=== PATIENT | female | born 1985 | race Caucasian/White ===

== ENCOUNTER 2020-09-20 13:17 | Outpatient (REF) | payer BC, SELFPAY ==
--- NOTE | ~2020-09-20 | US_ITS ---
EXAMINATION: US COMPLETE ABDOMEN WITH LIVER ELASTOGRAPHY CLINICAL INFORMATION: Calculus of gallbladder without cholecystitis. COMPARISON: Ultrasound 04/23/2018 TECHNIQUE: Real-time imaging of the abdominal viscera. Noninvasive ultrasound liver fibrosis assessment is performed using Lana ElastPQ point quantification shear wave elastography (pSWE) with a C5-2 MHz transducer. Multiple elastography samples are obtained. FINDINGS: PANCREAS: Normal. The visualized pancreatic head and body are normal in appearance. The remainder of the pancreas is obscured from visualization by the overlying bowel gas. ABDOMINAL AORTA: The proximal, middle, and distal aortic segments are normal in caliber. INFERIOR VENA CAVA: Visualized portions are normal. LIVER: Mild increased echogenicity. No focal lesion or intrahepatic biliary duct dilatation. The right lobe measures 15.4 cm in length. The left lobe measures 6.9 cm in length. Portal flow is hepatopedal. Shear wave liver elastography median stiffness is 1.27 m/s (reference: normal median stiffness is 1.3 m/s or less). IQR/median stiffness to assess sampling precision is 0.18 (reference: good quality data set is IQR/median stiffness of 0.15 or less). Multiple gallstones. No wall thickening or pericholecystic fluid. No tenderness in the area of the gallbladder. COMMON BILE DUCT: Normal in caliber measuring 0.3 cm in diameter. RIGHT KIDNEY: Normal. No hydronephrosis. No renal calculi or focal parenchymal lesions. The kidney measures 10.2 cm in maximum dimension. LEFT KIDNEY: Normal. No hydronephrosis. No renal calculi or focal parenchymal lesions. The kidney measures 9.4 cm in maximum dimension. SPLEEN: Normal. The spleen measures 8.9 cm in maximum dimension. FREE FLUID: None. US/US abdomen comp w elastography IMPRESSION: 1. Cholelithiasis without sonographic findings to suggest acute cholecystitis. 2. There is generalized increase in hepatic echotexture, consistent with fatty infiltration or hepatocellular disease. Please correlate clinically. No focal hepatic mass or intrahepatic biliary duct dilatation is seen. 3. Liver elastography: Liver stiffness 1.27 m/s. According to guidelines, this falls within range of high probability normal. REFERENCE: Society of Radiologists in Ultrasound Liver Stiffness Thresholds (2020): LIVER STIFFNESS THRESHOLDS: *Liver Stiffness equal or less than 1.3 m/s: High probability of being normal. *Liver Stiffness less than 1.7 m/s: In the absence of other known clinical signs, rules out compensated advanced chronic liver disease. *Liver Stiffness 1.7-2.1 m/s: Suggestive of compensated advanced chronic liver disease but need further test for confirmation. *Liver Stiffness over 2.1 m/s: Rules in compensated advanced chronic liver disease. *Liver Stiffness over 2.4 m/s: Suggestive of clinically significant portal hypertension. QUALITY OF DATA SET: *IQR/Median value equal or less than 0.15 implies a quality data set. *IQR/Median value over 0.15 implies a poor quality data set. SIGNIFICANT CHANGE FROM PRIOR EXAM: Significant change if liver stiffness measurement is 10% or greater from prior exam. OTHER CONSIDERATIONS: The stage of liver fibrosis may be overestimated in the setting of acute hepatitis, liver inflammation, elevated liver function tests, hepatic vascular congestion, obstructive cholestasis, non-fasting state, and infiltrative diseases such as amyloidosis and lymphoma. In some patients with NAFLD, the liver stiffness thresholds for compensated advanced chronic liver disease may be lower. In causes other than viral hepatitis and NAFLD, liver stiffness thresholds are not well established.
== END 2020-09-20 13:18 | disposition home or self-care (01) ==
LOC: HO.US 13:17
PROVIDERS: Visit Provider Internal Medicine
DX: K80.20 Calculus of gallbladder without cholecystitis without obstruction (principal)
CPT/HCPCS: 76705; 76981

== ENCOUNTER 2021-09-26 20:25 | Emergency (ER) | payer BC, SELFPAY ==
--- NOTE | 2021-09-26 | ECG_ITS ---
Test Reason : PALPITATIONS Blood Pressure : / mmHG Vent. Rate : 065 BPM Atrial Rate : 065 BPM P-R Int : 136 ms QRS Dur : 092 ms QT Int : 414 ms P-R-T Axes : 068 053 050 degrees QTc Int : 430 ms Normal sinus rhythm Normal ECG No previous ECGs available Referred By: Generic ED Physician Electronically Signed By:ANGELIC HWANG
[2021-09-26 20:29] VITALS: BP 143/91; PULSE 79; RESP 18; TEMP 36.8; O2SAT 100; BMI 28.0
== END 2021-09-26 21:50 | disposition left against medical advice (07) ==
PROVIDERS: Emergency Provider Emergency Medicine
DX: R06.02 Shortness of breath (principal); R07.9 Chest pain, unspecified; F41.9 Anxiety disorder, unspecified
CPT/HCPCS: 93005; 99281; 99283

== ENCOUNTER 2022-06-18 12:01 | Outpatient (REF) | payer OTHER, SELFPAY ==
--- NOTE | ~2022-06-18 | XR_ITS ---
EXAMINATION: XR CHEST CLINICAL INFORMATION: Cough. COMPARISON: None available. TECHNIQUE: 2 views of the chest were obtained. FINDINGS: No significant abnormality is noted involving the heart, lungs, mediastinum, bony thorax or soft tissues. XR/XR chest 2V IMPRESSION: No acute cardiopulmonary process.
== END 2022-06-18 12:02 | disposition home or self-care (01) ==
LOC: HO.HMGCX 12:01
PROVIDERS: Visit Provider Internal Medicine
DX: R05.9 Cough, unspecified (principal)
CPT/HCPCS: 71046

== ENCOUNTER 2022-07-29 07:33 | Outpatient (REF) | payer OTHER, SELFPAY ==
[2022-07-29 07:43] LABS: MANUAL DIFF FLAG NO
[2022-07-29 08:09] LABS: Basophils Absolute Auto 0.1 X10*3/uL (0.0-0.2); Basophils Percent Auto 1.2 % (0-2); Eosinophils Absolute Auto 0.1 X10*3/uL (0.0-0.4); Eosinophils Percent Auto 1.5 % (0-4); Hematocrit 39.6 % (37.0-47.0); Hemoglobin 13.1 g/dl (12.0-16.0); Imm Gran Abs Auto 0.03 X10*3/uL (0.00-0.03); Imm Gran Pct Auto 0.5 % (0.0-0.4); Lymphocytes Absolute Auto 2.4 X10*3/uL (1.2-4.9); Lymphocytes Percent Auto 38.7 % (20-40); Mean Corpuscular HGB Conc 33.1 g/dl (31.0-35.0); Mean Corpuscular Hemoglobin 28.7 pg (27.0-33.0); Mean Corpuscular Volume 86.8 fL (80.0-98.0); Mean Platelet Volume 9.6 fL (9.4-12.3); Monocytes Absolute Auto 0.5 X10*3/uL (0.1-1.2); Monocytes Percent Auto 8.4 % (2-11); Neutrophils Percent Auto 49.7 % (45-73); Platelet Count 320 X10*3/uL (160-400); Red Blood Count 4.56 X10*6/uL (4.20-5.50); Red Cell Distribution Width 13.1 % (11.0-16.0); White Blood Count 6.1 X10*3/uL (4.8-10.8)
[2022-07-29 09:12] LABS: Alanine Aminotransferase 10 U/L (0-31); Albumin Level 4.1 g/dL (3.5-5.0); Alkaline Phosphatase 53 U/L (39-117); Anion Gap 10 (12-20); Aspartate Amino Transferase 14 U/L (5-31); Bilirubin Total 0.8 mg/dL (0.0-1.0); Blood Urea Nitrogen 14 mg/dL (9-16); Calcium 9.7 mg/dL (8.4-10.2); Carbon Dioxide 29 mmol/L (22-29); Chloride 106 mmol/L (96-108); Cholesterol 204 mg/dL; Estimated Glomerular Filt Rate > 60; HDL Cholesterol 51 mg/dL; LDL Cholesterol Calculated 141 mg/dl; Sodium 141 mmol/L (135-145); Total Protein 7.1 g/dL (6.5-8.0); Triglycerides 63 mg/dL
[2022-07-29 12:11] LABS: Glucose Random 85 mg/dL (60-115)
== END 2022-07-29 07:34 | disposition home or self-care (01) ==
LOC: HO.LAB 07:33
PROVIDERS: PCP Internal Medicine; Visit Provider Internal Medicine
DX: Z00.00 Encounter for general adult medical examination without abnormal findings (principal); E78.5 Hyperlipidemia, unspecified; E55.9 Vitamin D deficiency, unspecified; F32.0 Major depressive disorder, single episode, mild
CPT/HCPCS: 36415; 80053; 80061; 82306; 85025

== ENCOUNTER 2024-07-01 08:21 | Outpatient (REF) | payer OTHER, SELFPAY ==
[2024-07-01 10:37] LABS: Albumin Level 4.3 g/dL (3.5-5.0); Alkaline Phosphatase 57 U/L (39-117); Anion Gap 11 (12-20); Aspartate Amino Transferase 29 U/L (5-31); Blood Urea Nitrogen 18 mg/dL (9-16); Calcium 9.4 mg/dL (8.4-10.2); Carbon Dioxide 24 mmol/L (22-29); Chloride 109 mmol/L (96-108); Cholesterol 241 mg/dL (<200); Estimated Glomerular Filt Rate > 60; Glucose Fasting 79 mg/dL (60-99); HDL Cholesterol 56 mg/dL (>40); LDL Cholesterol Calculated 172 mg/dL (<100); Potassium 4.5 mmol/L (3.3-5.1); Sodium 139 mmol/L (135-145); Total Protein 7.9 g/dL (6.5-8.0); Triglycerides 68 mg/dL (<150); Vitamin D 25-OH Total 42.7 ng/mL (>30)
[2024-07-01 11:18] LABS: Alanine Aminotransferase 42 U/L (0-31)
== END 2024-07-01 08:22 | disposition home or self-care (01) ==
LOC: HO.LAB 08:21
PROVIDERS: PCP Internal Medicine; Visit Provider Internal Medicine
DX: Z00.00 Encounter for general adult medical examination without abnormal findings (principal); E55.9 Vitamin D deficiency, unspecified; E78.5 Hyperlipidemia, unspecified
CPT/HCPCS: 36415; 80053; 80061; 82306

== ENCOUNTER 2024-07-08 16:41 | Outpatient (AMB) | payer OTHER, SELFPAY ==
--- NOTE | 2024-07-08 16:52 | A.OFFPC_ITS ---
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 Accompanied by: Self / Same As Patient Allergies No Known Allergies [No Known Allergies*] Allergy (Verified 07/08/24 17:07) Medication List - Last Reconciled 07/08/24 by Natalia Harvey MD bupropion HCl XL 150 mg PO QAM 90 days Tobacco use date assessed: 07/08/24 Dental Screening Dental Screen Date: 07/08/24 Did you have a dental visit in the last 12 months?: Yes Did you have a dental problem in the last 6 months where you did not have access to dental care?: No Was dental information given to patient?: Patient has dentist HPI HPI Comments History of Present Illness Details The patient is a 39-year-old female presenting for her physical exam with symptoms of premenstrual syndrome, notably mood disturbances and headaches preceding her menstrual period. She reports a significant deterioration in her mood, including depressive symptoms, which she correlates with her menstrual cycle over the past year. The headaches persist for three days before menstruation. Previous attempts to use hormonal contraceptives for symptom management resulted in an allergic reaction, including palpitations, leading to their discontinuation. The patient recalls a similar response with contraceptive use in [place]. She is concerned about perimenopause, considering early menopause in her mother, and is willing to undergo hormonal evaluation to address these symptoms. [facility] Medical History (Updated 07/08/24 @ 17:19 by Natalia Harvey MD) Mild major depression, single episode Hypovitaminosis D Depression Gallstones Dyslipidemia Back pain Surgical History (Updated 07/08/24 @ 17:14 by Natalia Harvey MD) H/O liposuction No pertinent past surgical history Family History Father Lung cancer Mother Heart disease Diabetes Brother In good health Brother In good health Brother In good health Social History Housing: Condominium Alcohol intake: never Patient Tobacco Use Status: Never used Tobacco e-Cigarette/Vaping Use: Never Used Second Hand Smoke Exposure: No service: No Current occupational status: employed Current occupational exposures/hazards: No Cognitive needs: No Hearing needs: No Vision needs: No Questionnaire PHQ-9 Over the last 2 weeks, how often have you been bothered by any of the following problems? 1. Little interest or pleasure in doing things: not at all 2. Feeling down, depressed, or hopeless: not at all 3. Trouble falling or staying asleep, or sleeping too much: not at all 4. Feeling tired or having little energy: not at all 5. Poor appetite or overeating: not at all 6. Feeling bad about yourself - or that you are a failure or have let yourself or your family down: not at all 7. Trouble concentrating on things, such as reading the newspaper or watching television: not at all 8. Moving or speaking so slowly that other people could have noticed. Or the opposite - being so fidgety or restless that you have been moving around a lot more than usual: not at all 9. Thoughts that you would be better off or of hurting yourself in some way: not at all Total score: 0 Depression Screening Interpretation: Negative Depression Screening Done: Yes 36441 - PHQ-9 Billing: Yes Source: Developed by Drs. Steve Fonseca, Ailyn Traore, Niles Vasquez and colleagues, with an educational asa from [employer]. Thrive Questionnaire Date Thrive assessed: 07/01/24 I am a: Patient What is your living situation today?: I choose not to answer this question Within the past 12 months, did the food you bought not last and you didn't have the money to get more?: I choose not to answer this question Within the past 12 months, did you worry whether your food would run out before you got money to buy more?: I choose not to answer this question Do you have trouble paying for medicines?: No Do you have trouble getting transportation to medical appointments?: No Do you have trouble paying your heating and electricity bill?: I choose not to answer this question Do you have trouble taking care of your child, family member or friend?: I choose not to answer this question Do you have trouble with day-to-day activities such as bathing, preparing meals, shopping, managing finances, etc.?: I choose not to answer this question Are you currently unemployed and looking for a job?: No Are you interested in more education?: No Please select the resources that you would like help with: None Currently or been in a relationship where the following occur: No concerns reported THRIVE Score: 0 AUDIT C Alcohol Use Questionnaire (AUDIT-C) 1. How often do you have a drink containing alcohol?: Never Total Score: 0 Score Reviewed/Action Taken: No PARAS-7 AMB Questionnaire PARAS-7 Date PARAS - 7 assessed: 07/08/24 Feeling nervous, anxious, or on edge: 0 = Not at all Not being able to stop or control worryin = Not at all Worrying too much about different things: 0 = Not at all Trouble relaxin = Not at all Being so restless that it is hard to sit still: 0 = Not at all Becoming easily annoyed or irritable: 0 = Not at all Feeling afraid as if something awful might happen: 0 = Not at all Total PARAS-7 score (0-4 normal; 5-9 mild; 10-14 moderate; 15-21 severe): 0 Source: Developed by Drs. Steve Fonseca, Ailyn Traore, Niles Vasquez and colleagues, with an educational asa from [employer]. PARAS-7 Assessment Billing PARAS-7 Assessment Tool: PARAS-7 Assessment 06787 Review of Systems Const All systems reviewed & are unremarkable except as noted in HPI and below Card Denies chest pain at rest, Denies chest pain with activity, Denies edema, Denies irregular heart rhythm, Denies claudication, Denies dyspnea, Denies dyspnea on exertion, Denies orthopnea, Denies paroxysmal nocturnal dyspnea and Denies slow heart rate Resp Denies cough, Denies dyspnea and Denies dyspnea on exertion GI Denies abdominal pain, Denies change in bowel habits, Denies excessive flatus, Denies nausea and Denies vomiting Denies urinary incontinence, Denies urinary hesitancy and Denies urinary urgency Musc Denies atrophy, Denies deformity and Denies limited range of motion Skin/Breast Denies bleeding lesions, Denies changing lesions and Denies rash Physical exam (Primary Care) Vital Signs: Last Vital Signs BP 120/72 07/08/24 16:58 BMI result Body Mass Index 28.5 Tobacco/Smoking Status: Tobacco use Status Tobacco use date assessed 07/08/24 07/08/24 17:02 Patient Tobacco Use Status Never used Tobacco 07/08/24 16:55 e-Cigarette/Vaping Use Never Used 07/08/24 16:55 PHQ-9: PHQ-9 Score PHQ-9: Total score 0 07/08/24 17:09 Depression Screening Interpretation: Negative Thrive Assessment: Date of Thrive Assessment Date Thrive assessed 07/01/24 07/08/24 16:55 Currently or been in a relationship where the following occur: No concerns reported HENMT Head: Yes normal to inspection, Yes normocephalic and Yes atraumatic Ears: external ears normal Eyes General: appearance normal, both eyes and all related structures Neck Neck: Yes normal visual inspection and Yes supple Resp Effort & Inspection: normal respiratory effort Auscultation: clear to auscultation bilaterally Cardio Jugular venous distension: no JVD Rate: regular rate Rhythm: regular rhythm Heart sounds: S1 normal heart sound present and S2 normal heart sound present GI Inspection: Yes normal to inspection Palpation (GI): Soft to palpation and nontender Auscultation: normal bowel sounds Skin General skin exam: no rashes or lesions noted Neuro General: no focal motor deficits Extrem General: Yes full ROM Psych Appearance: grossly normal Coding Level of Care Code Est Pt Level 3 (65022) Est Pt Prev Care 18-39y(80901) Diagnoses Physical exam Z00.00 Mild major depression, single episode F32.0 Abnormal menses N92.6 Additional Codes PARAS-7 Assessment Billing - PARAS-7 Assessment Tool: PARAS-7 Assessment 82699 ([id number]) PHQ-9 - 64223 - PHQ-9 Billing: Yes ([id number]) Time Spent (min) 33 Assessment & Plan Assessment & Plan (1) Physical exam: Code(s): Z00.00 - Encounter for general adult medical examination without abnormal findings Category: Medical (2) Mild major depression, single episode: Code(s): F32.0 - Major depressive disorder, single episode, mild Category: Medical (3) Abnormal menses: Code(s): N92.6 - Irregular menstruation, unspecified Category: Medical Plan Laboratory tests including cortisol, FSH, LH, estrogen, progesterone, and thyroid hormone levels are to be conducted, ideally on the third day of the menstrual cycle to evaluate hormonal status and potential perimenopausal transition. The timing aims for hormonal peaks, and fasting is not necessary. These evaluations will guide further management, with consideration for non- hormonal strategies to address premenstrual syndrome symptoms due to adverse reactions with hormonal contraceptives. Monitoring will be continued to assess symptom progression and response to management. Patient was informed and verbally consented to the use of an ambient scribe for clinic note documentation during this visit. During the consultation, I discussed with the patient the probability of her symptoms being related to premenstrual syndrome and the potential for entering perimenopause. We considered the risks and benefits of hormonal evaluations and their timing in relation to the menstrual cycle. The plan includes laboratory tests for a comprehensive hormonal profile and further discussion once results are available to tailor symptom management strategies. Follow-up was recommended to review test results and outline potential treatment modifications. The patient was receptive to conducting the evaluations as discussed. Orders: Orders Follicle Stimulating Hormone 07/08/24 N92.6 - Irregular menstruation, unspecified Thyroid Stimulating Hormone 07/08/24 N92.6 - Irregular menstruation, unspecified Saliva Cortisol 07/08/24 N92.6 - Irregular menstruation, unspecified Estrogen 07/08/24 N92.6 - Irregular menstruation, unspecified Lutenizing Hormone 07/08/24 N92.6 - Irregular menstruation, unspecified Progesterone 07/08/24 N92.6 - Irregular menstruation, unspecified Testosterone, Free/Total 07/08/24 N92.6 - Irregular menstruation, unspecified Patient Instructions: - Undergo hormonal evaluations on the third day of the menstrual cycle, around 8:00 AM. - No need to fast before the tests. - Maintain hydration. - Follow up to discuss test results and potential management strategies upon result availability.
[2024-07-08 16:58] VITALS: BP 120/72; BMI 28.5
== END 2024-07-08 17:11 | disposition home or self-care (01) ==
LOC: HO.HMCH 16:42
PROVIDERS: PCP Internal Medicine; Visit Provider Internal Medicine
DX: Z00.00 Encounter for general adult medical examination without abnormal findings (principal); F32.0 Major depressive disorder, single episode, mild; N92.6 Irregular menstruation, unspecified

== ENCOUNTER → 2024-07-08 16:41 | Outpatient (BNVA) | payer OTHER, SELFPAY | PROVIDERS: PCP Internal Medicine; Visit Provider Internal Medicine | DX: Z00.00 Encounter for general adult medical examination without abnormal findings (principal); F32.0 Major depressive disorder, single episode, mild; N92.6 Irregular menstruation, unspecified | CPT/HCPCS: 96127 ==

== ENCOUNTER 2024-07-10 08:18 | Outpatient (REF) | payer OTHER, SELFPAY ==
[2024-07-12 18:33] LABS: Follicle Stimulating Hormone 21.3 mIU/mL; Lutenizing Hormone 16.5 mIU/mL
[2024-07-16 01:13] LABS: Estrogen 169 pg/mL
[2024-07-18 15:44] LABS: Testosterone, Free 1.5 pg/mL (0.1-6.4); Testosterone, Total 15 ng/dL (2-45)
[2024-07-29 17:49] LABS: Progesterone 0.2 ng/mL
== END 2024-07-10 08:19 | disposition home or self-care (01) ==
LOC: HO.LAB 08:18
PROVIDERS: PCP Internal Medicine; Visit Provider Internal Medicine
DX: N92.6 Irregular menstruation, unspecified (principal)
CPT/HCPCS: 36415; 82672; 83001; 83002; 84144; 84402; 84403; 84443

== ENCOUNTER 2024-11-15 09:54 | Outpatient (AMB) | payer OTHER, SELFPAY ==
--- NOTE | 2024-11-15 09:55 | A.OFFPC_ITS ---
Intake Visit Reasons: Discussing Franc-Danlos Syndrome (EDS) symptoms Engineering Leader Required: No Accompanied by: Self / Same As Patient Allergies No Known Allergies (No Known Allergies*) Allergy (Verified 11/15/24 10:14) Medication List - Last Reconciled 11/15/24 by Natalia Harvey MD bupropion HCl XL 300 mg PO QAM 90 days Tobacco use date assessed: 11/15/24 Dental Screening Dental Screen Date: 11/15/24 Did you have a dental visit in the last 12 months?: Yes Did you have a dental problem in the last 6 months where you did not have access to dental care?: No Was dental information given to patient?: Patient has dentist HPI HPI Comments History of Present Illness Details The patient is a 39-year-old female presenting with major depressive disorder, vitamin D deficiency, and joint-related symptoms. She has a history of mild major depressive disorder, currently managed with bupropion 300 mg, which she finds excessive and requests a reduction to 150 mg. Vitamin D deficiency is being managed with ongoing supplementation. 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 [facility] Medical History (Updated 11/15/24 @ 10:21 by Natalia Harvey MD) Mild major depression, single episode Hypovitaminosis D Depression Gallstones Dyslipidemia Back pain Surgical History (Updated 07/08/24 @ 17:14 by Natalia Harvey MD) H/O liposuction No pertinent past surgical history Family History Father Lung cancer Mother Heart disease Diabetes Brother In good health Brother In good health Brother In good health Social History Housing: Condominium Alcohol intake: never Patient Tobacco Use Status: Never used Tobacco e-Cigarette/Vaping Use: Never Used Second Hand Smoke Exposure: No service: No Current occupational status: employed Current occupational exposures/hazards: No Cognitive needs: No Hearing needs: No Vision needs: No Questionnaire Thrive Questionnaire Date Thrive assessed: 07/01/24 I am a: Patient What is your living situation today?: I choose not to answer this question Within the past 12 months, did the food you bought not last and you didn't have the money to get more?: I choose not to answer this question Within the past 12 months, did you worry whether your food would run out before you got money to buy more?: I choose not to answer this question Do you have trouble paying for medicines?: No Do you have trouble getting transportation to medical appointments?: No Do you have trouble paying your heating and electricity bill?: I choose not to answer this question Do you have trouble taking care of your child, family member or friend?: I choose not to answer this question Do you have trouble with day-to-day activities such as bathing, preparing meals, shopping, managing finances, etc.?: I choose not to answer this question Are you currently unemployed and looking for a job?: No Are you interested in more education?: No Please select the resources that you would like help with: None Currently or been in a relationship where the following occur: No concerns reported THRIVE Score: 0 AUDIT C Alcohol Use Questionnaire (AUDIT-C) 3. How often do you have six or more drinks on one occasion?: Never Total Score: 0 PARAS-7 AMB Questionnaire PARAS-7 Date PARAS - 7 assessed: 07/08/24 Source: Developed by Drs. Steve Fonseca, Ailyn Traore, Niles Vasquez and colleagues, with an educational asa from [employer]. Review of Systems Const All systems reviewed & are unremarkable except as noted in HPI and below Card Denies chest pain at rest, Denies chest pain with activity, Denies edema, Denies irregular heart rhythm, Denies claudication, Denies dyspnea, Denies dyspnea on exertion, Denies orthopnea, Denies paroxysmal nocturnal dyspnea and Denies slow heart rate Resp Denies cough, Denies dyspnea and Denies dyspnea on exertion Musc Reports arthralgias Neuro Denies lack of coordination Psych Reports depression Norberto/Lymph Reports easy bruising Physical exam (Primary Care) Tobacco/Smoking Status: Tobacco use Status Tobacco use date assessed 11/15/24 11/15/24 09:57 Patient Tobacco Use Status Never used Tobacco 11/15/24 09:57 e-Cigarette/Vaping Use Never Used 11/15/24 09:57 Thrive Assessment: Date of Thrive Assessment Date Thrive assessed 07/01/24 11/15/24 09:57 Currently or been in a relationship where the following occur: No concerns reported HENMT Head: Yes normal to inspection Eyes General: appearance normal, both eyes and all related structures Eyelids: Yes eyelids normal Conjunctivae: conjunctivae normal Extrem General: Yes full ROM Psych Appearance: grossly normal Telehealth Telehealth Telehealth Platform: [employer] Location of provider rendering services: practice address Location of patient: address on file Patient Identification confirmed using: Name, : Yes Telehealth method: video Patient verbally consented to treatment: Yes Patient verbally consented to billing insurance company: Yes Patient informed of any privacy concerns related to visit: Yes Minutes spent on Phone/Video with Pt.: 15 Coding Level of Care Code Tele Est Pt Level 4 (21371) Complex EM visit Add On G2211 Diagnoses Mild major depression, single episode F32.0 Hypovitaminosis D E55.9 Polyarthralgia M25.50 Migraines G43.909 Time Spent (min) 15 Assessment & Plan Assessment & Plan (1) Mild major depression, single episode: Code(s): F32.0 - Major depressive disorder, single episode, mild Category: Medical (2) Hypovitaminosis D: Code(s): E55.9 - Vitamin D deficiency, unspecified Category: Medical (3) Polyarthralgia: Code(s): M25.50 - Pain in unspecified joint Category: Medical (4) Migraines: Code(s): G43.909 - Migraine, unspecified, not intractable, without status migrainosus Category: Medical Plan The patient will be referred to neurology for further evaluation of her migraines and to rheumatology for assessment of 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 She should continue taking vitamin D supplements to address her deficiency. The dosage of bupropion will be reduced from 300 mg to 150 mg as per her request to better manage her depressive symptoms. Patient was informed and verbally consented to the use of an ambient scribe for clinic note documentation during this visit. Orders: Referrals Neurology Referral G43.909 - Migraine, unspecified, not intractable, without status migrainosus Rheumatology Referral M25.50 - Pain in unspecified joint Medications: New bupropion HCl XL (Wellbutrin XL) 150 mg PO QAM 90 tabs 2RF 90 days Discontinued bupropion HCl XL Discontinued Reason: Patient Completed Course 300 mg PO QAM 90 days 90 tabs 1RF F32.0 - Major depressive disorder, single episode, mild Patient Instructions: - Continue taking vitamin D supplements as directed. - Reduce bupropion dosage to 150 mg as discussed. - Follow up with neurology and rheumatology as scheduled.
== END 2024-11-15 11:49 | disposition home or self-care (01) ==
LOC: HO.HMCH 09:54
PROVIDERS: PCP Internal Medicine; Visit Provider Internal Medicine
DX: F32.0 Major depressive disorder, single episode, mild (principal); E55.9 Vitamin D deficiency, unspecified; M25.50 Pain in unspecified joint; G43.909 Migraine, unspecified, not intractable, without status migrainosus